=== PATIENT | female | born 1935 | race Native Hawaiian/Other Pacific Islander ===

== ENCOUNTER → 2016-10-23 | Outpatient (CLI) | payer MEDICARE ==
[~2016-10-23] MED LIST: AMLO5 PO; APIX5TAB PO; CEPH500C3 PO; DIGO0.12 PO; DILT0.05 PO; DILT30TA PO; GUAI100S5 PO; LACT PO; LEVA750T PO; NORV2.5T11 PO; OXYC-360 PO; ROBIDM5S PO; WARF-58 PO
[2016-10-23 12:38] LABS: INTERNATIONAL NORMALIZED RATIO 1.1 RATIO
[2016-10-23 13:08] LABS: FREE T4 1.41 NG/DL (0.76-1.46)
== END ==
LOC: CLAB 12:07
PROVIDERS: ATTEND Internal Medicine Interventional Cardiology
DX: I11.9 Hypertensive heart disease without heart failure (principal); I48.91 Unspecified atrial fibrillation
CPT/HCPCS: 36415; 84439; 84443; 85610

== ENCOUNTER 2016-10-28 15:47 | Inpatient (IN) | payer MEDICARE ==
[2016-10-28] VITALS (10 sets, daily range): BP systolic 126–184; BP diastolic 69–96; PULSE 75–122; RESP 16–18; TEMP 98–98.3; O2SAT 96–98
[~2016-10-28] VITALS: Ht 170.2 cm; Wt 72.5 kg
[~2016-10-28 15:47] MED LIST changes: -AMLO5 PO; -APIX5TAB PO; -DIGO0.12 PO; -DILT0.05 PO; -DILT30TA PO; -GUAI100S5 PO; -LACT PO; -LEVA750T PO; -ROBIDM5S PO; -WARF-58 PO
[2016-10-28] MEDS ORDERED: DILTIAZEM INJ 125 MG in SODIUM CHLORIDE 0.9% INJ 100 ML IV SCH (16:30)
[2016-10-28] MEDS ORDERED: DILTIAZEM HCL 25 MG/5 ML VIAL IV PUSH ONE (16:30)
[2016-10-28] MEDS ORDERED: SODIUM CHLORIDE 0.9% FLUSH 5 ML FLUSH IVF PRN ×2 (16:30)
--- NOTE | 2016-10-28 16:39 | PD ---
HPI . Rapid heartbeat Chief Complaint: Abnormal Results Time Seen by Provider: 16:23 Travel History International Travel<30 days: No Contact w/Intl Traveler<30days: No Traveled to known affect area: No History of Present Illness HPI The history is obtained water, he speaks fluent Kiswahili, and the presence of the mother who reportedly understands Kiswahili. The daughter reports that the patient was incidentally diagnosed with atrial fibrillation on October 11 he was seen by her primary care provider for bronchitis. The primary care provider started the patient on metoprolol and referred her to cardiology. The patient has been evaluated by the processing manager twice since then. The patient was not tolerating metoprolol so it was changed to Cardizem about a week ago. She takes a long-acting Cardizem regularly and then a short acting Cardizem when necessary for a heart rate greater than 110. The daughter states that she has had to give her the short acting Cardizem a couple of times in the past 2 days. Today, the cardiac persists. The patient is on warfarin. PFSH Past Medical History Hypertension: Yes Past Surgical History Genitourinary Surgery: Yes (BLADDER PROLAPSE REPAIR) Hysterectomy: Yes Social History Alcohol Use: No Tobacco Use: No Substance Use: No Allergies-Medications (Allergen,Severity, Reaction): Coded Allergies: No Known Allergies (Verified , 10/28/16) Reported Meds & Prescriptions Reported Meds & Active Scripts Active Reported Diltiazem (Diltiazem HCl) 30 Mg Tab 30 Mg PO QID PRN Diltiazem ER 24 HR 180 Mg Chris 180 Mg PO DAILY Warfarin 3 Mg Tab 3 Mg PO DAILY Review of Systems Except as stated in HPI: all other systems reviewed are Neg General / Constitutional: No: Fever, Chills Cardiovascular: Positive: Palpitations, Irregular Rhythm, No: Chest Pain or Discomfort Respiratory: No: Shortness of Breath Gastrointestinal: No: Nausea, Vomiting Neurologic: No: Weakness, Dizziness Physical Exam Narrative GENERAL: This is a healthy-appearing 81-year-old woman who is awake and alert. SKIN: Warm and dry. HEAD: Atraumatic. Normocephalic. EYES: Pupils equal and round. ENT: No nasal bleeding or discharge. Mucous membranes pink and moist. NECK: Trachea midline. Neck is supple. CARDIOVASCULAR: She has an irregularly irregular rate and rhythm. Her heart rate is about 130. RESPIRATORY: No accessory muscle use. Lungs are clear. GASTROINTESTINAL: Abdomen soft, non-tender, nondistended. MUSCULOSKELETAL: No obvious deformities. No edema. NEUROLOGICAL: Awake and alert. No obvious cranial nerve deficits. Motor grossly within normal limits. Normal speech. PSYCHIATRIC: Appropriate mood and affect; insight and judgment normal. Data Data Last Documented VS Vital Signs Date Time Temp Pulse Resp B/P Pulse Ox O2 Delivery O2 Flow Rate FiO2 10/28/16 18:30 75 16 126/89 97 Nasal Cannula 2 10/28/16 15:52 98.0 Orders Electrocardiogram (10/28/16 ) Ecg Monitoring (10/28/16 16:29) Blood Pressure (10/28/16 16:29) Iv Access Insert/Monitor (10/28/16 16:29) Oximetry (10/28/16 16:29) Vital Signs (10/28/16 16:29) Diltiazem Inj (Cardizem Inj) (10/28/16 16:30) Diltiazem Inj (Cardizem Inj) (10/28/16 16:30) Sodium Chloride 0.9% Flush (Ns Flush) (10/28/16 16:30) Diltiazem Inj (Cardizem Inj) (10/28/16 17:00) Basic Metabolic Panel (Bmp) (10/28/16 16:29) Ckmb (Isoenzyme) Profile (10/28/16 16:29) Complete Blood Count With Diff (10/28/16 16:29) Magnesium (Mg) (10/28/16 16:29) Prothrombin Time / Inr (Pt) (10/28/16 16:29) Act Partial Throm Time (Ptt) (10/28/16 16:29) Troponin I (10/28/16 16:29) Chest, Single Ap (10/28/16 16:29) Bilateral Bp Monitoring (10/28/16 16:29) Oxygen Administration (10/28/16 16:29) Sodium Chloride 0.9% Flush (Ns Flush) (10/28/16 16:30) Admit Order (Ed Use Only) (10/28/16 19:14) Labs Laboratory Tests Test 10/28/16 16:45 White Blood Count 7.3 TH/MM3 Red Blood Count 4.73 MIL/MM3 Hemoglobin 13.3 GM/DL Hematocrit 40.1 % Mean Corpuscular Volume 84.8 FL Mean Corpuscular Hemoglobin 28.0 PG Mean Corpuscular Hemoglobin 33.1 % Concent Red Cell Distribution Width 14.8 % Platelet Count 188 TH/MM3 Mean Platelet Volume 8.0 FL Neutrophils (%) (Auto) 64.3 % Lymphocytes (%) (Auto) 24.9 % Monocytes (%) (Auto) 8.4 % Eosinophils (%) (Auto) 1.1 % Basophils (%) (Auto) 1.3 % Neutrophils # (Auto) 4.7 TH/MM3 Lymphocytes # (Auto) 1.8 TH/MM3 Monocytes # (Auto) 0.6 TH/MM3 Eosinophils # (Auto) 0.1 TH/MM3 Basophils # (Auto) 0.1 TH/MM3 CBC Comment DIFF FINAL Differential Comment Prothrombin Time 13.1 SEC Prothromb Time International 1.2 RATIO Ratio Activated Partial 26.1 SEC Thromboplast Time Sodium Level 139 MEQ/L Potassium Level 3.9 MEQ/L Chloride Level 103 MEQ/L Carbon Dioxide Level 30.5 MEQ/L Anion Gap 6 MEQ/L Blood Urea Nitrogen 14 MG/DL Creatinine 0.99 MG/DL Estimat Glomerular Filtration 54 ML/MIN Rate Random Glucose 137 MG/DL Calcium Level 8.7 MG/DL Magnesium Level 2.0 MG/DL Total Creatine Kinase 84 U/L Troponin I LESS THAN 0.02 NG/ML MDM Medical Decision Making Medical Screen Exam Complete: Yes Emergency Medical Condition: Yes Interpretation(s) EKG shows atrial fibrillation with a ventricular response of 130. Differential Diagnosis Differential diagnosis of tachycardia includes but is not limited to PSVT, atrial fibrillation with a rapid ventricular response, sinus tachycardia (due to hypovolemia, anemia, thyrotoxicosis) Narrative Course Patient presents for treatment of tachycardia. She does not have any associated symptoms such as chest pain, shortness of breath, nausea or dizziness. CBC is normal. Chemistries are normal. CK and troponin are both negative. INR is not yet therapeutic. Is 1.2. Patient's rate has been around 100 since an initial bolus of Cardizem. She has not required a second bolus for a drip. The daughter is reluctant to take her home. Critical Care Narrative Aggregate critical care time was 45 minutes. Time to perform other separately billable procedures was not included in the critical care time. My time did not include minutes spent treating any other patients simultaneously or on activities that did not directly contribute to the patient's treatment. The services I provided to this patient were to treat and/or prevent clinically significant deterioration that could result in: Fatal dysrhythmia or cardiovascular collapse I provided critical care services requiring my management, as noted below: Chart data review, documentation time, medication orders and management, vital sign assessments/reviewing monitor data, ordering and reviewing lab tests, ordering and interpreting/reviewing x-rays and diagnostic studies, care of the patient and discussion of the patient with the admitting physicians. Diagnosis Primary Impression: Atrial fibrillation with rapid ventricular response Condition: Stable Heide Geller MD Oct 28, 2016 16:39
[2016-10-28] MEDS ORDERED: WARF-58 PO (16:40)
[2016-10-28] MEDS ORDERED: DILT30TA PO (16:40)
[2016-10-28] MEDS ORDERED: DILT0.05 PO (16:40)
[2016-10-28 16:56] LABS: AUTOMATED NEUTROPHIL # 4.7 TH/MM3 (1.8-7.7); BASOPHIL # 0.1 TH/MM3 (0-0.2); BASOPHIL % 1.3 % (0.0-2.0); EOSINOPHIL # 0.1 TH/MM3 (0-0.4); EOSINOPHIL % 1.1 % (0.0-4.0); HEMATOCRIT 40.1 % (35.0-46.0); HEMO FLAGS DIFF FINAL; LYMPH % 24.9 % (9.0-44.0); LYMPHOCYTE # 1.8 TH/MM3 (1.0-4.8); MEAN CELL VOLUME 84.8 FL (80.0-100.0); MEAN CORPUSCULAR HGB CONC 33.1 % (32.0-36.0); MONO % 8.4 % (0.0-8.0); NEUT % 64.3 % (16.0-70.0); PLATELET COUNT 188 TH/MM3 (150-450); RED BLOOD COUNT 4.73 MIL/MM3 (4.00-5.30); RED CELL DISTRIBUTION WIDTH 14.8 % (11.6-17.2); WHITE BLOOD COUNT 7.3 TH/MM3 (4.0-11.0)
[2016-10-28] MEDS ORDERED: DILTIAZEM HCL 50 MG/10 ML VIAL IV PUSH ONE (17:00)
[2016-10-28 17:10] LABS: APTT (PATIENT) 26.1 SEC (24.3-30.1); INTERNATIONAL NORMALIZED RATIO 1.2 RATIO; PROTHROMBIN TIME - PATIENT 13.1 SEC (9.8-11.6)
--- NOTE | 2016-10-28 17:22 | RADRPT ---
EXAM DATE/TIME: 10/28/2016 16:48 [facility] COMPARISON: CHEST SINGLE AP, May 25, 2010, 14:01. INDICATIONS : Chest pain. MEDICAL HISTORY : None. SURGICAL HISTORY : None. ENCOUNTER: Initial ACUITY: 1 day PAIN SCORE: 5/10 LOCATION: Bilateral chest FINDINGS: The heart is enlarged. Bibasilar atelectasis and/or mild infiltrates are noted. Minimal pleural eff usion is noted on the right. CONCLUSION: 1. Bibasilar atelectasis and/or minimal infiltrates. 2. Minimal right pleural effusion. 3. Cardiomegaly. Nestor Robledo MD on October 28, 2016 at 17:12 Board Certified Radiologist. This report was verified electronically.
[2016-10-28 17:26] LABS: ANION GAP 6 MEQ/L (5-15); BICARBONATE 30.5 MEQ/L (21.0-32.0); BLOOD UREA NITROGEN 14 MG/DL (7-18); CHLORIDE 103 MEQ/L (98-107); GLOMERULAR FILTRATION RATE 54 ML/MIN (>89); POTASSIUM 3.9 MEQ/L (3.5-5.1); SODIUM (NA) 139 MEQ/L (136-145)
[2016-10-28 17:33] LABS: CREATINE KINASE 84 U/L (26-192)
--- NOTE | 2016-10-28 19:21 | HHI.HP ---
[facility] Vicky Yepez MD Admission Diagnosis AF WITH RVR Diagnoses: (1) Atrial fibrillation with rapid ventricular response Diagnosis: Principal (2) Dehydration Diagnosis: Principal (3) Subtherapeutic international normalized ratio (INR) Diagnosis: Principal (4) HTN (hypertension) Diagnosis: Principal Travel History International Travel<30 Days: No Contact w/Intl Traveler <30 Da: No Traveled to Known Affected Are: No History of Present Illness This is an 81-year-old female with a PMH of HTN and A. fib on Coumadin was brought to the ER by family secondary to uncontrolled A. fib. History provided by daughters at bedside, one daughter RN on ISC. Daughter report pt w/ uncontrolled A-fib for approx 2-3wks with HR ranging from 80-120's. Follows w/ Dr. Yepez, daughter states Cardizem 30mg qid added as PRN for HR >110 if BP tolerating. Per daughter, pt w/ multiple episodes of HR >110 and pt w/ c/o SOB during exertion and decision made to bring to ER. On arrival, patient found to be in A. fib with RVR, HR 122. BP 184/95, O2 sat 97% on RA, Afebrile. S/p Cardizem IV x2 doses w/ HR 80-100's. BP currently 126/89. CBC unremarkable. Chemistry essentially unremarkable except for decreased GFR 54. CXR w/ bibasilar atelectasis vs possible infiltrates. No reported cough. INR subtherapeutic at 1.2. Review of Systems Other ROS: 14 point review of systems otherwise negative. Past Family Social History Past Medical History PMH: HTN and A. fib on Coumadin Past Surgical History PAST SURGICAL HISTORY: Bladder Prolapse Repair, Hysterectomy Allergies: Coded Allergies: No Known Allergies (Verified , 10/28/16) Family History PAST FAMILY HISTORY: Reviewed. No h/o DM or CAD Social History PAST SOCIAL HISTORY: Negative for alcohol, tobacco or drugs. Physical Exam Vital Signs Vital Signs Date Time Temp Pulse Resp B/P Pulse Ox O2 Delivery O2 Flow Rate FiO2 1/8/17 18:30 75 16 126/89 97 Nasal Cannula 2 10/28/16 18:00 84 16 128/69 98 Nasal Cannula 2 10/28/16 17:10 98 Nasal Cannula 2 10/28/16 17:10 96 16 141/83 98 Nasal Cannula 2 10/28/16 16:40 118 16 153/89 96 Room Air 10/28/16 16:40 118 16 96 Room Air 10/28/16 16:35 166/96 153/89 10/28/16 15:52 98.0 122 16 184/95 97 Room Air Physical Exam PE: GENERAL: Very pleasant elderly Lithuanian female in no acute distress. Multiple family members at bedside. HEENT: PERRLA, EOMI. No scleral icterus or conjunctival pallor. No lid lag or facial droop. CARDIOVASCULAR: Irregularly irregular, in A. fib, HR 80-120's. No obvious murmurs to auscultation. No chest tenderness to palpation. RESPIRATORY: No obvious rhonchi or wheezing. Clear to auscultation. Breath sounds equal bilaterally. GASTROINTESTINAL: Abdomen soft, non-tender, nondistended. BS normal. MUSCULOSKELETAL: Extremities without clubbing, cyanosis, or edema. No obvious deformities. NEUROLOGICAL: Awake, alert and oriented x4. No focal neurologic deficits. Moving both upper and lower extremities spontaneously. Laboratory Laboratory Tests Test 10/28/16 16:45 White Blood Count 7.3 Red Blood Count 4.73 Hemoglobin 13.3 Hematocrit 40.1 Mean Corpuscular Volume 84.8 Mean Corpuscular Hemoglobin 28.0 Mean Corpuscular Hemoglobin 33.1 Concent Red Cell Distribution Width 14.8 Platelet Count 188 Mean Platelet Volume 8.0 Neutrophils (%) (Auto) 64.3 Lymphocytes (%) (Auto) 24.9 Monocytes (%) (Auto) 8.4 Eosinophils (%) (Auto) 1.1 Basophils (%) (Auto) 1.3 Neutrophils # (Auto) 4.7 Lymphocytes # (Auto) 1.8 Monocytes # (Auto) 0.6 Eosinophils # (Auto) 0.1 Basophils # (Auto) 0.1 CBC Comment DIFF FINAL Differential Comment Prothrombin Time 13.1 Prothromb Time International 1.2 Ratio Activated Partial 26.1 Thromboplast Time Sodium Level 139 Potassium Level 3.9 Chloride Level 103 Carbon Dioxide Level 30.5 Anion Gap 6 Blood Urea Nitrogen 14 Creatinine 0.99 Estimat Glomerular Filtration 54 Rate Random Glucose 137 Calcium Level 8.7 Magnesium Level 2.0 Total Creatine Kinase 84 Troponin I LESS THAN 0.02 Result Diagram: 10/28/16 1645 10/28/161644 Assessment and Plan Problem List: (1) Atrial fibrillation with rapid ventricular response ICD Code: I48.91 Status: Acute (2) Subtherapeutic international normalized ratio (INR) ICD Code: R79.1 Status: Acute (3) Dehydration ICD Code: E86.0 Status: Acute (4) HTN (hypertension) ICD Code: I10 Status: Acute Assessment and Plan A/P: 1. A-fib w/ RVR: h/o A-fib, now uncontrolled for approx 2-3wks per daughters. Following w/ Dr. Yepez as outpatient, added Cardizem 30mg qid prn for HR >110. On arrival, HR 120-130's, s/p Cardizem IV x2 doses w/ improvement. HR 80-120's. Resume home Cardizem 180mg qd, add Metoprolol/additional Cardizem if HR sustains >120 and BP can tolerate. Consult Dr. Yepez for further recommendations. Initial trop negative. CXR w/ bibasilar atelectasis vs questionable infiltrate, images reviewed by me. No signs of infection. Afebrile, no leukocytosis. Will monitor. 2. Subtherapeutic INR: INR 1.2 on Coumadin. Resume home Coumadin, repeat INR in am. 3. Dehydration: GFR 54, previously 70 on 05/26/10. IVF for hydration. Check U/ a to eval for underlying UTI that may be contributing to dehydration and A-fib. Repeat labs in am. 4. HTN: BP on arrival 180's systolic, currently 128/69, HR 84. Resume Cardizem. Monitor BP. 5. DVT Prophylaxis: On Coumadin 6. Social work for d/c planning as needed. 7. Case discussed w/ ER physician at length. Barbra Jaramillo MD Oct 28, 2016 19:21
[2016-10-28] MEDS ORDERED: ACETAMINOPHEN 325 MG TAB PO PRN (19:30)
[2016-10-28] MEDS ORDERED: ONDANSETRON HCL 4 MG/2 ML VIAL IVP PRN (19:30)
[2016-10-28] MEDS ORDERED: ACETAMINOPHEN/HYDROcodone 325 MG/5 MG TAB PO PRN (19:30)
[2016-10-28] MEDS ORDERED: SODIUM CHLORIDE 0.9% FLUSH 5 ML FLUSH FLUSH PRN (19:30)
[2016-10-28] MEDS ORDERED: BISACODYL 10 MG SUPP PR PRN (19:30)
[2016-10-28] MEDS ORDERED: ACETAMINOPHEN/HYDROcodone 325 MG/10 MG TAB PO PRN (19:30)
[2016-10-28] MEDS: SODIUM CHLORIDE 0.9% FLUSH 5 ML FLUSH FLUSH SCH (21:00)
[2016-10-28] MEDS ORDERED: SODIUM CHLOR 0.9% 1000 ML INJ 1,000 ML IV ONE (21:00)
--- NOTE | 2016-10-28 21:29 | EKG ---
Date Performed: 10/28/2016 Time Performed: 16:30:34 PTAGE: 81 years EKG: ATRIAL FIBRILLATION WITH RAPID VENTRICULAR RESPONSE POSSIBLE INFERIOR MYOCARDIAL INFARCTION NONSPECIFIC T WAVE CHANGES ABNORMAL RHYTHM ECG PREVIOUS TRACING : 05/22/2010 13.22 Compared to previous tracing, atrial fibrillation has repla lorena Sinus rhythm , heart rate has increased. DOCTOR: Barak Griffiths Interpretating Date/Time 10/28/2016 21:27:12
[2016-10-29] VITALS (8 sets, daily range): BP systolic 111–140; BP diastolic 67–98; PULSE 94–125; RESP 16–22; TEMP 96.7–98.6; O2SAT 92–98
[2016-10-29] MEDS ORDERED: guaiFENesin/CODEINE SYRUP 200 MG/20 MG/10 ML CUP PO PRN (01:45)
[2016-10-29] MEDS ORDERED: DILTIAZEM HCL 30 MG TAB PO ONE (04:00)
[2016-10-29 05:39] LABS: AUTOMATED NEUTROPHIL # 3.5 TH/MM3 (1.8-7.7); BASOPHIL % 0.5 % (0.0-2.0); EOSINOPHIL # 0.1 TH/MM3 (0-0.4); EOSINOPHIL % 1.3 % (0.0-4.0); HEMATOCRIT 36.2 % (35.0-46.0); HEMO FLAGS DIFF FINAL; LYMPH % 24.3 % (9.0-44.0); LYMPHOCYTE # 1.3 TH/MM3 (1.0-4.8); MEAN CELL VOLUME 84.6 FL (80.0-100.0); MEAN CORPUSCULAR HEMOGLOBIN 28.3 PG (27.0-34.0); MEAN CORPUSCULAR HGB CONC 33.4 % (32.0-36.0); MONO % 9.9 % (0.0-8.0); PLATELET COUNT 165 TH/MM3 (150-450); RED BLOOD COUNT 4.28 MIL/MM3 (4.00-5.30); RED CELL DISTRIBUTION WIDTH 14.8 % (11.6-17.2); WHITE BLOOD COUNT 5.5 TH/MM3 (4.0-11.0)
[2016-10-29 05:41] LABS: INTERNATIONAL NORMALIZED RATIO 1.2 RATIO; PROTHROMBIN TIME - PATIENT 12.9 SEC (9.8-11.6)
[2016-10-29 06:04] LABS: ALT (GPT) 122 U/L (10-53); ANION GAP 8 MEQ/L (5-15); AST (GOT) 29 U/L (15-37); BICARBONATE 27.3 MEQ/L (21.0-32.0); BLOOD UREA NITROGEN 11 MG/DL (7-18); CHLORIDE 106 MEQ/L (98-107); GLOMERULAR FILTRATION RATE 94 ML/MIN (>89); POTASSIUM 3.6 MEQ/L (3.5-5.1); SODIUM (NA) 141 MEQ/L (136-145)
[2016-10-29 06:06] LABS: ALKALINE PHOSPHATASE 91 U/L (45-117); TOTAL BILIRUBIN ADULT 0.9 MG/DL (0.2-1.0)
[2016-10-29] MEDS ORDERED: DILTIAZEM HCL 30 MG TAB PO PRN (07:45)
--- NOTE | 2016-10-29 08:22 | HHI.PR ---
Subjective Remarks Follow-up for atrial fibrillation with RVR, bronchitis vs. pneumonia. Patient is currently doing well. Sitting in her chair. Denies any chest pain, shortness of breath, fever or chills. She continues to have cough. Discussed with patient's daughters who state that patient to azithromycin couple of weeks ago. Her symptoms have not improved. Objective Vitals Vital Signs Date Time Temp Pulse Resp B/P Pulse Ox O2 Delivery O2 Flow Rate FiO2 10/29/16 08:13 96.7 125 20 140/98 98 10/29/16 05:27 98.6 118 16 117/86 92 10/29/16 00:47 97.8 105 18 140/72 97 10/28/16 22:00 82 10/28/16 21:35 98.3 95 18 127/81 96 10/28/16 20:30 86 16 141/69 96 Nasal Cannula 2 10/28/16 19:30 92 16 158/95 98 Nasal Cannula 2 10/28/16 18:30 75 16 126/89 97 Nasal Cannula 2 10/28/16 18:00 84 16 128/69 98 Nasal Cannula 2 10/28/16 17:10 98 Nasal Cannula 2 10/28/16 17:10 96 16 141/83 98 Nasal Cannula 2 10/28/16 16:40 118 16 153/89 96 Room Air 10/28/16 16:40 118 16 96 Room Air 10/28/16 16:35 166/96 153/89 10/28/16 15:52 98.0 122 16 184/95 97 Room Air I/O 10/28/16 10/28/16 10/28/16 10/29/16 10/29/16 10/29/16 07:00 15:00 23:00 07:00 15:00 23:00 Intake Total 1580 ml Balance 1580 ml Intake Oral 480 ml IV Total 1100 ml # Voids 2 Result Diagram: 10/29/168 10/29/16 0438 Imaging Last Impressions Chest X-Ray 10/28/16 1629 Signed Impressions: Service Date/Time: Friday, October 28, 2016 16:48 - CONCLUSION: 1. Bibasilar atelectasis and/or minimal infiltrates. 2. Minimal right pleural effusion. 3. Cardiomegaly. Nestor Robledo MD Objective Remarks GENERAL: AOx3, NAD. SKIN: Warm and dry. HEAD: Normocephalic. EYES: No scleral icterus. No injection or drainage. NECK: Supple, trachea midline. No JVD or lymphadenopathy. CARDIOVASCULAR: Regular rate and rhythm without murmurs, gallops, or rubs. RESPIRATORY: Breath sounds equal bilaterally. No accessory muscle use. GASTROINTESTINAL: Abdomen soft, non-tender, nondistended. MUSCULOSKELETAL: No cyanosis, or edema. BACK: Nontender without obvious deformity. No CVA tenderness. Procedures None. A/P Problem List: (1) Atrial fibrillation with rapid ventricular response ICD Code: I48.91 Status: Acute (2) Subtherapeutic international normalized ratio (INR) ICD Code: R79.1 Status: Acute (3) Dehydration ICD Code: E86.0 Status: Acute (4) HTN (hypertension) ICD Code: I10 Status: Acute Assessment and Plan Ms. Hennessy is an 81-year-old female with a PMH of HTN and A. fib on Coumadin was brought to the ER by family secondary to uncontrolled A. fib on 10/28. Follows w/ Dr. Yepez, daughter states Cardizem 30mg qid added as PRN for HR >110 if BP tolerating. On arrival, patient found to be in A. fib with RVR, HR 122. BP 184/95, O2 sat 97% on RA, Afebrile. S/p Cardizem IV x2 doses in the ED w/ HR 80-100's. Patient is on warfarin, INR on admission 1.2. - Probable bacterial bronchitis - Probable pneumonia - Since patient failed outpatient therapy with azithromycin, will start patient on IV ceftriaxone and by mouth Levaquin. - Also start patient on incentive spirometry for atelectasis - Start Robitussin DM and Tessalon when necessary. - Switch to inpatient admission and transfer patient to the medical surgical floor. A-fib w/ RVR: h/o A-fib, now uncontrolled for approx 2-3wks per daughters. - Dr. Yepez evaluated patient. Continue Cardizem 360 mg by mouth daily. - [id number] score 4 (Female, Age > 75, HTN). Currently on warfarin. INR 1.2. - Patient's daughters would like to explore the possibility of using apixaban or pradaxa. CM will give coupon for both. - If they decide to switch, we can discontinue warfarin in the hospital and start one of the newer anticoagulants. Hypertension - Currently 140/98. - We'll start patient on amlodipine 5 mg by mouth daily Full code. Warfarin. Discussed with patient's daughters, patient's son and cyanide case hardener. Treva Claire DO Oct 29, 2016 8:22 am
--- NOTE | 2016-10-29 08:37 | MB ---
cc: FLORENCIO XIAO MD DATE OF CONSULTATION 10/29/2016 REASON FOR CONSULTATION Atrial fibrillation with rapid ventricular rate. HISTORY OF PRESENT ILLNESS The patient is an 81-year-old female known to me who does have atrial fibrillation. She was recently changed from metoprolol to Cardizem. The daughter shows me her home readings which overall show heart rates around 100. She, however, was having episodes of RVR to 120s and 130s. This precipitated her emergency room visit. The patient does note also a progressive cough. ALLERGIES No known drug allergies. OUTPATIENT MEDICATIONS 1. Diltiazem ER 180 mg per day. 2. Diltiazem 30 30 mg q.i.d. p.r.n. 3. Warfarin 3 mg a day. SOCIAL HISTORY The patient does not smoke or drink. PAST SURGICAL HISTORY Bladder prolapse surgery. FAMILY HISTORY Noncontributory. REVIEW OF SYSTEMS Except as mentioned in HPI, all 12 systems are negative. PHYSICAL EXAMINATION Vital Signs: 98.6, 118, 16, 117/86. In General: She is a well-appearing female who is in no apparent distress. Neck: Her neck is free from JVD. Lungs: Bilaterally clear to auscultation. Cardiovascular Examination: She has a normal S1 and S2. Did not appreciate any murmurs, rubs or gallops. The rhythm was irregularly irregular. Abdomen: Soft. Extremities: Free from edema. LABORATORY VALUES Significant for troponin of less than 0.02. Telemetry shows atrial fibrillation with episodes of RVR. IMPRESSION Atrial fibrillation - the patient does have a history of the same and is doing relatively well with the transition. Her diltiazem, however, does need to be titrated up and I want to increase this to 360 per day of the long-acting. We can continue to use the short-acting at this time. We will continue to observe her overnight and if her heart rate is reasonably well-controlled, we can consider discharge in the morning. Additionally, she should remain on the Coumadin. Hypertension - This is reasonably controlled. Bronchitis - The patient does have a progressive cough and a history of bronchitis. This is most consistent with that and I do not believe it is related to her A-fib. Sincerely, Florencio Xiao M.D. BAB/SSB /8:05 AM /8:28 AM
[2016-10-29] MEDS: DILTIAZEM-CD 180 MG CAP ER PO SCH (08:46)
[2016-10-29] MEDS: SODIUM CHLORIDE 0.9% FLUSH 5 ML FLUSH FLUSH SCH ×2 (08:46→21:00)
[2016-10-29] MEDS ORDERED: DILTIAZEM-CD 180 MG CAP ER PO SCH (09:00)
[2016-10-29] MEDS ORDERED: WARFARIN SOD 3 MG TAB PO SCH ×2 (09:00→16:00)
[2016-10-29] MEDS ORDERED: guaiFENesin/DEXTROMETHORPHAN 200 MG/20 MG/10 ML CUP PO PRN (11:15)
[2016-10-29] MEDS ORDERED: BENZONATATE 100 MG CAP PO PRN (11:15)
[2016-10-29] MEDS: amLODIPine BESYLATE 5 MG TAB PO SCH (13:57)
[2016-10-29] MEDS: cefTRIAXone INJ 2,000 MG in SODIUM CHLORIDE 0.9% INJ 100 ML IV SCH (13:58)
[2016-10-29] MEDS: WARFARIN SOD 3 MG TAB PO SCH (18:59)
[2016-10-29] MEDS: LACTOBACILLUS ACIDOPHILUS TAB PO SCH (18:59)
[2016-10-29] MEDS ORDERED: TEMAZEPAM 7.5 MG CAP PO ONE (21:00)
[2016-10-30] VITALS (7 sets, daily range): BP systolic 102–150; BP diastolic 67–85; PULSE 78–110; RESP 17–22; TEMP 98–98.7; O2SAT 94–99
--- NOTE | 2016-10-30 08:35 | PD.CARD.PN ---
Subjective Subjective Remarks PT feeling better Objective Medications Current Medications Medications (Trade) Dose Ordered Sig/Harika Route Start Time Stop Time Status Last Admin (NS Flush) 2 ml UNSCH PRN FLUSH 10/28/16 19:30 (NS Flush) 2 ml BID FLUSH 10/28/16 21:00 10/29/16 21:00 (Zofran Inj) 4 mg Q6H PRN IVP 10/28/16 19:30 (Dulcolax Supp) 10 mg DAILY PRN PA 10/28/16 19:30 (Tylenol) 650 mg Q6H PRN PO 10/28/16 19:30 ([facility] 5-325 Mg) 1 tab Q4H PRN PO 10/28/16 19:30 ([facility] 10-325 Mg) 1 tab Q4H PRN PO 10/28/16 19:30 (Cardizem Cd) 360 mg DAILY PO 10/29/16 09:00 10/29/16 08:46 Diltiazem HCl 30 mg 30 mg QID PRN PO 10/29/16 07:45 (Rocephin Inj/NS Inj) 100 ml @ 200 mls/hr Q24H IV 10/29/16 12:00 10/29/16 13:58 (Levaquin) 500 mg DAILY PO 10/30/16 09:00 11/06/16 08:59 (Robitussin Dm 200-20 Mg/10 ml Liq) 10 ml Q6H PRN PO 10/29/16 11:15 (Tessalon) 100 mg TID PRN PO 10/29/16 11:15 (Norvasc) 5 mg DAILY PO 10/29/16 12:15 10/29/16 13:57 (Coumadin) 3 mg DAILY@1800 PO 10/29/16 19:00 10/29/16 18:59 (Lactinex) 1 tab TID PO 10/29/16 19:00 10/29/16 18:59 Vital Signs / I&O Vital Signs Date Time Temp Pulse Resp B/P Pulse Ox O2 Delivery O2 Flow Rate FiO2 10/30/16 07:26 98.0 103 17 123/84 98 10/30/16 04:57 98.7 92 22 136/76 94 10/30/16 00:14 98.4 99 20 102/68 94 10/29/16 23:58 94 10/29/16 19:18 97.9 101 22 111/67 97 10/29/16 17:13 97.9 124 130/87 96 10/29/16 12:23 97.7 118 18 140/92 98 10/29/16 10:00 125 Physical Exam GENERAL: Well developed, well nourished. No acute distress. HEENT: Jugular venous pressure is normal. CHEST: Lungs clear and decreased in bases to auscultation bilaterally. Unlabored respiratory effort. CARDIAC: irregular rate and rhythm without S3, S4, or murmur. ABDOMEN: Soft, nontender, no hepatosplenomegaly. Bowel sounds present. EXTREMITIES: No clubbing, cyanosis, or edema. Imaging Last 72 hours Impressions Chest X-Ray 10/28/16 1629 Signed Impressions: Service Date/Time: Friday, October 28, 2016 16:48 - CONCLUSION: 1. Bibasilar atelectasis and/or minimal infiltrates. 2. Minimal right pleural effusion. 3. Cardiomegaly. Nestor Robledo MD Assessment and Plan Assessment and Plan Atrial fibrillation - fair control on present meds -family discussing [place] options, no Medicare part D coverage though -consider d/c in am Case management - to see if she can get coverage Hypertension - This is reasonably controlled. Bronchitis - pneumonia- on antibiotics per primary team Vicky Yepez MD Oct 30, 2016 08:35
[2016-10-30] MEDS: LACTOBACILLUS ACIDOPHILUS TAB PO SCH ×3 (09:22→18:43)
[2016-10-30] MEDS: LEVOFLOXACIN 500 MG TAB PO SCH (09:22)
[2016-10-30] MEDS: DILTIAZEM-CD 180 MG CAP ER PO SCH (09:23)
[2016-10-30] MEDS: amLODIPine BESYLATE 5 MG TAB PO SCH (09:23)
[2016-10-30] MEDS: SODIUM CHLORIDE 0.9% FLUSH 5 ML FLUSH FLUSH SCH ×2 (09:23→21:00)
[2016-10-30] MEDS: cefTRIAXone INJ 2,000 MG in SODIUM CHLORIDE 0.9% INJ 100 ML IV SCH (12:58)
--- NOTE | 2016-10-30 17:01 | HHI.PR ---
Subjective Remarks Follow-up for atrial fibrillation with RVR, bronchitis vs. pneumonia. Patient is currently doing well. No acute concerns. Cough is better. No fever, chills. Objective Vitals Vital Signs Date Time Temp Pulse Resp B/P Pulse Ox O2 Delivery O2 Flow Rate FiO2 10/30/16 15:22 98.2 78 18 120/75 97 10/30/16 11:19 98.0 107 150/85 99 10/30/16 09:00 110 10/30/16 07:26 98.0 103 17 123/84 98 10/30/16 04:57 98.7 92 22 136/76 94 10/30/16 00:14 98.4 99 20 102/68 94 10/29/16 23:58 94 10/29/16 19:18 97.9 101 22 111/67 97 10/29/16 17:13 97.9 124 130/87 96 Result Diagram: 10/29/16 0438 10/29/16 0438 Imaging Last Impressions Chest X-Ray 10/28/16 1629 Signed Impressions: Service Date/Time: Friday, October 28, 2016 16:48 - CONCLUSION: 1. Bibasilar atelectasis and/or minimal infiltrates. 2. Minimal right pleural effusion. 3. Cardiomegaly. Nestor Robledo MD Objective Remarks GENERAL: AOx3, NAD. SKIN: Warm and dry. HEAD: Normocephalic. EYES: No scleral icterus. No injection or drainage. NECK: Supple, trachea midline. No JVD or lymphadenopathy. CARDIOVASCULAR: Regular rate and rhythm without murmurs, gallops, or rubs. RESPIRATORY: Breath sounds equal bilaterally. No accessory muscle use. GASTROINTESTINAL: Abdomen soft, non-tender, nondistended. MUSCULOSKELETAL: No cyanosis, or edema. BACK: Nontender without obvious deformity. No CVA tenderness. Procedures None. A/P Problem List: (1) Atrial fibrillation with rapid ventricular response ICD Code: I48.91 Status: Acute (2) Subtherapeutic international normalized ratio (INR) ICD Code: R79.1 Status: Acute (3) Dehydration ICD Code: E86.0 Status: Acute (4) HTN (hypertension) ICD Code: I10 Status: Acute Assessment and Plan Ms. Hennessy is an 81-year-old female with a PMH of HTN and A. fib on Coumadin was brought to the ER by family secondary to uncontrolled A. fib on 10/28. Follows w/ Dr. Yepez, daughter states Cardizem 30mg qid added as PRN for HR >110 if BP tolerating. On arrival, patient found to be in A. fib with RVR, HR 122. BP 184/95, O2 sat 97% on RA, Afebrile. S/p Cardizem IV x2 doses in the ED w/ HR 80-100's. Patient is on warfarin, INR on admission 1.2. - Probable bacterial bronchitis - Probable pneumonia - Patient failed outpatient therapy, we will continue IV ceftriaxone and by mouth Levaquin. - IF afebrile, we will continue Levaquin only. Possibly discharge on 2016. - Continue patient on incentive spirometry for atelectasis - Robitussin DM and Tessalon when necessary. A-fib w/ RVR: h/o A-fib, now uncontrolled for approx 2-3wks per daughters. - Dr. Yepez evaluated patient. Continue Cardizem 360 mg by mouth daily. - [id number] score 4 (Female, Age > 75, HTN). Currently on warfarin. INR 1.2. - Patient's daughters would like to explore the possibility of using apixaban or pradaxa. CM will give coupon for both. - If they decide to switch, we can discontinue warfarin in the hospital and start one of the newer anticoagulants. - PT/INR in the AM. Hypertension - Currently 120/75. - Continue amlodipine 5 mg by mouth daily Full code. Warfarin. Treva Claire DO Oct 30, 2016 17:01
[2016-10-30] MEDS: WARFARIN SOD 3 MG TAB PO SCH (18:43)
[2016-10-31 00:11] VITALS: PULSE 88
[2016-10-31 01:20] LABS: BLOOD, URINE NEG (NEG); GLUCOSE,URINE NEG (NEG); KETONE, URINE NEG (NEG); NITRITE,URINE NEG (NEG); PH, URINE 6.5 (5.0-8.5); SQUAMOUS EPITHELIAL CELL URINE <1 /hpf (0-5); URINE COLOR COLORLESS (YELLW/STRAW)
[2016-10-31 01:42] LABS: COMMENT (UR) CULT NOT INDICATED; CULTURE IF INDICATED CULT NOT INDICATED
[2016-10-31 04:38] VITALS: BP 166/81; PULSE 50; RESP 21; TEMP 98.7; O2SAT 96
[2016-10-31 05:25] LABS: INTERNATIONAL NORMALIZED RATIO 1.1 RATIO; PROTHROMBIN TIME - PATIENT 12.7 SEC (9.8-11.6)
[2016-10-31 07:20] VITALS: BP 112/65; PULSE 100; RESP 18; TEMP 97.7; O2SAT 95
--- NOTE | 2016-10-31 07:30 | PD.CARD.PN ---
Subjective Subjective Remarks pt with out complaints Objective Medications Current Medications Medications (Trade) Dose Ordered Sig/Harika Route Start Time Stop Time Status Last Admin (NS Flush) 2 ml UNSCH PRN FLUSH 10/28/16 19:30 (NS Flush) 2 ml BID FLUSH 10/28/16 21:00 10/30/16 21:00 (Zofran Inj) 4 mg Q6H PRN IVP 10/28/16 19:30 (Dulcolax Supp) 10 mg DAILY PRN SD 10/28/16 19:30 (Tylenol) 650 mg Q6H PRN PO 10/28/16 19:30 ([place] 5-325 Mg) 1 tab Q4H PRN PO 10/28/16 19:30 ([place] 10-325 Mg) 1 tab Q4H PRN PO 10/28/16 19:30 (Cardizem Cd) 360 mg DAILY PO 10/29/16 09:00 10/30/16 09:23 Diltiazem HCl 30 mg 30 mg QID PRN PO 10/29/16 07:45 (Rocephin Inj/NS Inj) 100 ml @ 200 mls/hr Q24H IV 10/29/16 12:00 10/30/16 12:58 (Levaquin) 500 mg DAILY PO 10/30/16 09:00 11/06/16 08:59 10/30/16 09:22 (Robitussin Dm 200-20 Mg/10 ml Liq) 10 ml Q6H PRN PO 10/29/16 11:15 10/31/16 02:34 (Tessalon) 100 mg TID PRN PO 10/29/16 11:15 10/30/16 23:23 (Norvasc) 5 mg DAILY PO 10/29/16 12:15 10/30/16 09:23 (Coumadin) 3 mg DAILY@1800 PO 10/29/16 19:00 10/30/16 18:43 (Lactinex) 1 tab TID PO 10/29/16 19:00 10/30/16 18:43 Vital Signs / I&O Vital Signs Date Time Temp Pulse Resp B/P Pulse Ox O2 Delivery O2 Flow Rate FiO2 10/31/16 07:20 97.7 100 18 112/65 95 10/31/16 04:38 98.7 50 21 166/81 96 1/11/17 00:11 88 10/30/16 21:02 98.4 108 21 132/67 95 10/30/16 15:22 98.2 78 18 120/75 97 10/30/16 11:19 98.0 107 150/85 99 10/30/16 09:00 110 Physical Exam GENERAL: Well developed, well nourished. No acute distress. HEENT: Jugular venous pressure is normal. CHEST: Lungs clear and decreased in bases to auscultation bilaterally. Unlabored respiratory effort. CARDIAC: irregular rate and rhythm without S3, S4, or murmur. ABDOMEN: Soft, nontender, no hepatosplenomegaly. Bowel sounds present. EXTREMITIES: No clubbing, cyanosis, or edema. Laboratory Laboratory Tests Test 10/31/16 10/31/16 00:50 04:58 Urine Color COLORLESS Urine Turbidity CLEAR Urine pH 6.5 Urine Specific [place] 1.002 Urine Protein NEG mg/dL Urine Glucose (UA) NEG mg/dL Urine Ketones NEG mg/dL Urine Occult Blood NEG Urine Nitrite NEG Urine Bilirubin NEG Urine Urobilinogen LESS THAN 2.0 MG/DL Urine Leukocyte Esterase NEG Urine RBC LESS THAN 1 /hpf Urine WBC LESS THAN 1 /hpf Urine Squamous Epithelial <1 /hpf Cells Microscopic Urinalysis Comment CULT NOT INDICATED Prothrombin Time 12.7 SEC Prothromb Time International 1.1 RATIO Ratio Assessment and Plan Assessment and Plan Atrial fibrillation - fair control on present meds -reasonable; add digoxin -on coumadin, per primary team -consider d/c Hypertension - This is reasonably controlled. Bronchitis - pneumonia- on antibiotics per primary team Vicky Yepez MD Oct 31, 2016 07:30 Vicky Yepez MD Oct 31, 2016 07:30
[2016-10-31] MEDS ORDERED: DIGOXIN 0.5 MG/2 ML VIAL IV PUSH ONE ×2 (07:45→15:00)
[2016-10-31] MEDS: LEVOFLOXACIN 500 MG TAB PO SCH (08:43)
[2016-10-31] MEDS: LACTOBACILLUS ACIDOPHILUS TAB PO SCH ×3 (08:43→18:09)
[2016-10-31] MEDS: amLODIPine BESYLATE 5 MG TAB PO SCH (08:44)
[2016-10-31] MEDS: DILTIAZEM-CD 180 MG CAP ER PO SCH (08:44)
[2016-10-31] MEDS: SODIUM CHLORIDE 0.9% FLUSH 5 ML FLUSH FLUSH SCH (08:44)
[2016-10-31] MEDS ORDERED: AMLO5 PO (11:14)
[2016-10-31] MEDS ORDERED: LEVA750T PO (11:14)
[2016-10-31] MEDS ORDERED: APIX5TAB PO (11:14)
[2016-10-31] MEDS ORDERED: LACT PO (11:14)
[2016-10-31] MEDS ORDERED: ROBIDM5S PO (11:14)
[2016-10-31] MEDS ORDERED: DIGO0.12 PO (11:14)
--- NOTE | 2016-10-31 11:15 | HHI.PR ---
Objective Vitals Vital Signs Date Time Temp Pulse Resp B/P Pulse Ox O2 Delivery O2 Flow Rate FiO2 10/31/16 07:20 97.7 100 18 112/65 95 10/31/16 04:38 98.7 50 21 166/81 96 10/31/16 00:11 88 10/30/16 21:02 98.4 108 21 132/67 95 10/30/16 15:22 98.2 78 18 120/75 97 10/30/16 11:19 98.0 107 150/85 99 Result Diagram: 10/29/1643710/29/16437 Objective Remarks GENERAL: AOx3, NAD. SKIN: Warm and dry. HEAD: Normocephalic. EYES: No scleral icterus. No injection or drainage. NECK: Supple, trachea midline. No JVD or lymphadenopathy. CARDIOVASCULAR: Regular rate and rhythm without murmurs, gallops, or rubs. RESPIRATORY: Breath sounds equal bilaterally. No accessory muscle use. GASTROINTESTINAL: Abdomen soft, non-tender, nondistended. MUSCULOSKELETAL: No cyanosis, or edema. BACK: Nontender without obvious deformity. No CVA tenderness. Procedures None. A/P Problem List: (1) Atrial fibrillation with rapid ventricular response ICD Code: I48.91 Status: Acute (2) Subtherapeutic international normalized ratio (INR) ICD Code: R79.1 Status: Acute (3) Dehydration ICD Code: E86.0 Status: Acute (4) HTN (hypertension) ICD Code: I10 Status: Acute Assessment and Plan Ms. Hennessy is an 81-year-old female with a PMH of HTN and A. fib on Coumadin was brought to the ER by family secondary to uncontrolled A. fib on 10/28. Follows w/ Dr. Yepez, daughter states Cardizem 30mg qid added as PRN for HR >110 if BP tolerating. On arrival, patient found to be in A. fib with RVR, HR 122. BP 184/95, O2 sat 97% on RA, Afebrile. S/p Cardizem IV x2 doses in the ED w/ HR 80-100's. Patient is on warfarin, INR on admission 1.2. - Probable bacterial bronchitis - Probable pneumonia - Patient failed outpatient therapy, we will continue IV ceftriaxone and by mouth Levaquin. - IF afebrile, we will continue Levaquin only. Possibly discharge on 2016. - Continue patient on incentive spirometry for atelectasis - Robitussin DM and Tessalon when necessary. A-fib w/ RVR: h/o A-fib, now uncontrolled for approx 2-3wks per daughters. - Dr. Yepez evaluated patient. Continue Cardizem 360 mg by mouth daily. - [id number] score 4 (Female, Age > 75, HTN). Currently on warfarin. INR 1.2. - Patient's daughters would like to explore the possibility of using apixaban or pradaxa. CM will give coupon for both. - If they decide to switch, we can discontinue warfarin in the hospital and start one of the newer anticoagulants. - PT/INR in the AM. Hypertension - Currently 120/75. - Continue amlodipine 5 mg by mouth daily Full code. Warfarin. Treva Claire DO Oct 31, 2016 11:14
[2016-10-31 11:25] VITALS: BP 117/86; PULSE 85; RESP 18; TEMP 97.7; O2SAT 98
[2016-10-31] MEDS ORDERED: FAMOTIDINE 20 MG TAB PO SCH (11:30)
[2016-10-31] MEDS: cefTRIAXone INJ 2,000 MG in SODIUM CHLORIDE 0.9% INJ 100 ML IV SCH (12:38)
[2016-10-31 15:05] VITALS: PULSE 86
[2016-10-31] MEDS ORDERED: GUAI100S5 PO (15:13)
[2016-10-31] MEDS ORDERED: WARF-58 PO (15:13)
[2016-10-31] MEDS ORDERED: DILT30TA PO (15:13)
[2016-10-31] MEDS ORDERED: DILT0.05 PO (15:13)
--- NOTE | 2016-10-31 15:17 | HHI.DS ---
Discharge Summary Admission Date Oct 29, 2016 at 11:08 am Discharge Date: Oct 31, 2016 Admitting Diagnosis AF WITH RVR (1) Atrial fibrillation with rapid ventricular response ICD Code: I48.91 Diagnosis: Principal (2) Pneumonia ICD Code: J18.9 (3) HTN (hypertension) ICD Code: I10 Procedures None. Brief History - From Admission This is an 81-year-old female with a PMH of HTN and A. fib on Coumadin was brought to the ER by family secondary to uncontrolled A. fib. History provided by daughters at bedside, one daughter RN on [facility]. Daughter report pt w/ uncontrolled A-fib for approx 2-3wks with HR ranging from 80-120's. Follows w/ Dr. Yepez, daughter states Cardizem 30mg qid added as PRN for HR >110 if BP tolerating. Per daughter, pt w/ multiple episodes of HR >110 and pt w/ c/o SOB during exertion and decision made to bring to ER. On arrival, patient found to be in A. fib with RVR, HR 122. BP 184/95, O2 sat 97% on RA, Afebrile. S/p Cardizem IV x2 doses w/ HR 80-100's. BP currently 126/89. CBC unremarkable. Chemistry essentially unremarkable except for decreased GFR 54. CXR w/ bibasilar atelectasis vs possible infiltrates. No reported cough. INR subtherapeutic at 1.2. CBC/BMP: 10/29/16 0438 10/29/16 0438 Significant Findings Laboratory Tests Test 10/28/16 10/29/16 10/31/16 16:45 04:38 04:58 Monocytes (%) (Auto) 8.4 % (0.0-8.0) 9.9 % (0.0-8.0) Prothrombin Time 13.1 SEC 12.9 SEC 12.7 SEC (9.8-11.6) (9.8-11.6) (9.8-11.6) Estimat Glomerular Filtration 54 ML/MIN (>89) Rate Random Glucose 137 MG/DL 118 MG/DL (74-106) (74-106) Troponin I LESS THAN 0.02 NG/ML (0.02-0.05) Alanine Aminotransferase 122 U/L (10-53) (ALT/SGPT) Total Protein 6.0 GM/DL (6.4-8.2) Albumin 3.0 GM/DL (3.4-5.0) Imaging Last Impressions Chest X-Ray 10/28/16 1629 Signed Impressions: Service Date/Time: Friday, October 28, 2016 16:48 - CONCLUSION: 1. Bibasilar atelectasis and/or minimal infiltrates. 2. Minimal right pleural effusion. 3. Cardiomegaly. Nestor Robledo MD PE at Discharge GENERAL: AOx3, NAD. SKIN: Warm and dry. HEAD: Normocephalic. EYES: No scleral icterus. No injection or drainage. NECK: Supple, trachea midline. No JVD or lymphadenopathy. CARDIOVASCULAR: Regular rate and rhythm without murmurs, gallops, or rubs. RESPIRATORY: Breath sounds equal bilaterally. No accessory muscle use. GASTROINTESTINAL: Abdomen soft, non-tender, nondistended. MUSCULOSKELETAL: No cyanosis, or edema. BACK: Nontender without obvious deformity. No CVA tenderness. Pt update on day of discharge Ms. Hennessy is doing well. She reports no CP, SOB, fever, chills. Cough is better. Hospital Course Ms. Hennessy is an 81-year-old female with a PMH of HTN and A. fib on Coumadin was brought to the ER by family secondary to uncontrolled A. fib on 10/28. Follows w/ Dr. Yepez, daughter states Cardizem 30mg qid added as PRN for HR >110 if BP tolerating. On arrival, patient found to be in A. fib with RVR, HR 122. BP 184/95, O2 sat 97% on RA, Afebrile. S/p Cardizem IV x2 doses in the ED w/ HR 80-100's. Patient is on warfarin, INR on admission 1.2. - Probable bacterial bronchitis - Probable pneumonia - Patient failed outpatient therapy, we will continue IV ceftriaxone and by mouth Levaquin. - On discharge, we will continue Levaquin. - Continue patient on incentive spirometry for atelectasis - Robitussin DM and Tessalon when necessary. A-fib w/ RVR: h/o A-fib, now uncontrolled for approx 2-3wks per daughters. - Dr. Yepez evaluated patient. Continue Cardizem 360 mg by mouth daily. - Patient is also on cardizem 30mg QID and Cardiology added digoxin on 2016. - [id number] score 4 (Female, Age > 75, HTN). Currently on warfarin. INR 1.2. - Patient's daughters would like to explore the possibility of using apixaban or pradaxa. CM will give coupon for both. - If they decide to switch, we can discontinue warfarin in the hospital and start one of the newer anticoagulants. - Discussed with patient's daughter - I will write an Rx for Apixaban 5mg BID. However, as noted on the Rx, patient should start Apixaban ONLY IF she decides to switch from Warfarin to Apixaban which family wants to discuss with Cardiology in the outpatient setting. Hypertension - Continue amlodipine 5 mg by mouth daily Full code. Warfarin. Pt Condition on Discharge: Good Discharge Disposition: Discharge Home Discharge Time: > 30 minutes Discharge Instructions DIET: Follow Instructions for: Heart Healthy Diet Activities you can perform: Regular-No Restrictions Follow up Referrals: PCP Follow-up - 1 Week New Medications: Apixaban (Eliquis) 5 Mg Tab 5 MG PO BID DO NOT TAKE WHILE ON WARFARIN. RX GIVEN ONLY IF SWITCHING FROM WARFARIN AFTER DISCUSSING WITH CARDIOLOGY DISCUSSED WITH PATIENT'S DAUGHTER WHO IS AN [employer] Blood Clot Prevention #60 Ref 0 TAB Guaifenesin-Codeine Liq (Guaifenesin-Codeine Liq) 100-10 Mg/5 Ml Soln 10 ML PO Q4H PRN COUGH #1 Ref 0 BOTTLE Levofloxacin (Levaquin) 750 Mg Tab 750 MG PO DAILY Infection #5 Ref 0 TAB Amlodipine (Norvasc) 5 Mg Tab 5 MG PO DAILY Blood Pressure Management #30 TAB Digoxin (Digoxin) 0.125 Mg Tab 0.125 MG PO DAILY Afib #30 TAB Guaifenesin/Dextromethorphan Liq (Guaifenesin-Dm Liq) 100-10 Mg/5 Ml Syrp 10 ML PO Q6H PRN COUGH Days 14 BOTTLE Lactobacillus Acidophilus (Acidophilus/l-Sporogenes) 1 Tab Tab 1 TAB PO TID Infection Days 14 TAB Changed Medications: Diltiazem ER 24 HR (Diltiazem ER 24 HR) 180 Mg Chris 360 MG PO DAILY #60 Ref 0 TAB (Changed from: 180 MG; 30) Continued Medications: Diltiazem (Diltiazem) 30 Mg Tab 30 MG PO QID PRN RAPID HEART RATE #120 Ref 0 TAB (This prescription has been renewed) Warfarin (Warfarin) 3 Mg Tab 3 MG PO DAILY Blood Clot Prevention #30 Ref 0 TAB (This prescription has been renewed) Treva Claire DO Oct 31, 2016 15:17
[2016-10-31 15:27] VITALS: BP 122/68; PULSE 87; RESP 18; TEMP 97; O2SAT 96
[2016-10-31] MEDS: WARFARIN SOD 3 MG TAB PO SCH (18:09)
[2016-11-01] MEDS ORDERED: DIGOXIN 0.125 MG TAB PO SCH (09:00)
[2016-11-01] MEDS ORDERED: LEVOFLOXACIN 750 MG TAB PO SCH (10:00)
== END 2016-10-31 22:24 | disposition home or self-care (01) | DRG 308 ==
LOC: NEPA 15:47 → NEDA 19:16 → NEPGCP 21:26 → OBSVTOIN 10-29 11:08
PROVIDERS: ADMIT Hospitalist; ATTEND Hospitalist
DX: I48.91 Unspecified atrial fibrillation (principal); J18.9 Pneumonia, unspecified organism; J98.11 Atelectasis; E86.0 Dehydration; I10 Essential (primary) hypertension; J40 Bronchitis, not specified as acute or chronic; Z79.01 Long term (current) use of anticoagulants
CPT/HCPCS: 71010; 80048; 80053; 81001; 82550; 83735; 84484; 85025; 85610; 85730; 93005; 94150; 96374; G0378; J0696; J1160; J7030